=== PATIENT | male | born 1970 | race Two or more races ===

== ENCOUNTER 2017-09-21 09:29 | Emergency (ER) | payer OTHER ==
[~2017-09-21] VITALS: Ht 172.7 cm; Wt 78.0 kg
[~2017-09-21 09:29] MED LIST: DIOVAN160 M1 PO; LAMISIL250 MG PO
[2017-09-21] MEDS ORDERED: LIPITOR20 MG (10:04)
[2017-09-21] MEDS ORDERED: BYSTOLIC10 MG (10:04)
== END 2017-09-21 13:11 | disposition home or self-care (01) ==
LOC: ER 09:29
DX: A60.01 Herpesviral infection of penis (principal); K29.60 Other gastritis without bleeding; B34.9 Viral infection, unspecified

== ENCOUNTER 2019-09-01 19:31 | Inpatient (IN) | payer OTHER ==
[~2019-09-01] VITALS: Ht 172.7 cm; Wt 83.0 kg
[~2019-09-01 19:31] MED LIST changes: +BYSTOLIC10 MG; +LIPITOR20 MG
[2019-09-01] MEDS ORDERED: TOPROL XL50 M1 PO (19:53)
[2019-09-01] MEDS ORDERED: NORVASC5 MG PO (19:54)
[2019-09-01] MEDS ORDERED: CRESTOR10 MG PO (19:54)
[2019-09-03] MEDS ORDERED: AZITHROMYCIN250 MG PO (08:42)
[2019-09-03] MEDS ORDERED: OSEL75CA PO (08:42)
[2019-09-03] MEDS ORDERED: ALBUTEROL0.63 MG/3 IH (10:08)
== END 2019-09-03 15:21 | disposition home or self-care (01) | DRG 153 ==
LOC: ER 19:31 → SEC-K 22:06 → MEDJ 09-02 08:18
PROVIDERS: ADMIT Internal Medicine
PROC: 8E0ZXY6 Isolation (ICD-10-PCS; principal; 2019-09-01)
PROC: BB24ZZZ Computerized Tomography (CT Scan) of Bilateral Lungs (ICD-10-PCS; 2019-09-01)
PROC: 3E0F7GC Introduction of Other Therapeutic Substance into Respiratory Tract, Via Natural or Artificial Opening (ICD-10-PCS; 2019-09-01)
PROC: 4A033R1 Measurement of Arterial Saturation, Peripheral, Percutaneous Approach (ICD-10-PCS; 2019-09-01)
DX: J11.1 Influenza due to unidentified influenza virus with other respiratory manifestations (principal); R09.02 Hypoxemia; J22 Unspecified acute lower respiratory infection; R50.9 Fever, unspecified

== ENCOUNTER 2020-06-03 15:43 | Emergency (ER) | payer OTHER ==
[~2020-06-03] VITALS: Ht 172.7 cm; Wt 78.5 kg
[~2020-06-03 15:43] MED LIST changes: +ALBUTEROL0.63 MG/3 IH; +AZITHROMYCIN250 MG PO; +CRESTOR10 MG PO; +NORVASC5 MG PO; +OSEL75CA PO; +TOPROL XL50 M1 PO
[2020-06-03] MEDS ORDERED: BREO ELLIPTA I1 EACH IH (16:45)
[2020-06-03] MEDS ORDERED: BANOPHEN25 MG PO (16:46)
[2020-06-03] MEDS ORDERED: BRONKAID DUAL1 EACH PO (16:46)
[2020-06-03] MEDS ORDERED: PREDNISOLONE SO10 MG PO (16:48)
== END 2020-06-03 19:39 | disposition home or self-care (01) ==
LOC: ER 15:43
DX: J06.9 Acute upper respiratory infection, unspecified (principal); Z03.818 Encounter for observation for suspected exposure to other biological agents ruled out

== ENCOUNTER 2020-06-24 23:07 | Emergency (ER) | payer OTHER ==
[~2020-06-24] VITALS: Ht 172.7 cm; Wt 80.3 kg
[~2020-06-24 23:07] MED LIST changes: +BANOPHEN25 MG PO; +BREO ELLIPTA I1 EACH IH; +BRONKAID DUAL1 EACH PO; +PREDNISOLONE SO10 MG PO
[2020-06-24] MEDS ORDERED: ACIDO FOLICO (23:32)
[2020-06-25] MEDS ORDERED: ONDANSETRON HCL4 MG PO (07:08)
[2020-06-25] MEDS ORDERED: TAMS0.4C PO (07:08)
[2020-06-25] MEDS ORDERED: TRAMADOL HCL50 MG PO (07:08)
== END 2020-06-25 07:36 | disposition home or self-care (01) ==
LOC: ER 23:07
DX: N20.1 Calculus of ureter (principal); K76.89 Other specified diseases of liver; R10.11 Right upper quadrant pain; R11.2 Nausea with vomiting, unspecified

== ENCOUNTER 2020-06-28 18:54 | Emergency (ER) | payer OTHER ==
[~2020-06-28] VITALS: Ht 172.7 cm; Wt 80.3 kg
[~2020-06-28 18:54] MED LIST changes: +ACIDO FOLICO; +ONDANSETRON HCL4 MG PO; +TAMS0.4C PO; +TRAMADOL HCL50 MG PO
[2020-06-29] MEDS ORDERED: ULTRAM50 MG PO (02:47)
[2020-06-29] MEDS ORDERED: TAMS0.4C PO (02:47)
[2020-06-29] MEDS ORDERED: LEVOFLOXACIN250 MG PO (02:47)
== END 2020-06-29 03:00 | disposition home or self-care (01) ==
LOC: ER 18:54
DX: N20.0 Calculus of kidney (principal)

== ENCOUNTER 2020-07-10 09:25 | Outpatient (CLI) | payer OTHER ==
[~2020-07-10 09:25] MED LIST changes: +LEVOFLOXACIN250 MG PO; +ULTRAM50 MG PO
== END 2020-07-10 09:37 | disposition home or self-care (01) ==
LOC: TOM 09:25
PROVIDERS: ATTEND Urology
DX: N20.1 Calculus of ureter (principal)

== ENCOUNTER 2020-07-21 13:26 | Outpatient (CLI) | payer OTHER | END 2020-07-21 13:38 | disposition home or self-care (01) | LOC: RAD 13:26 | PROVIDERS: ATTEND Urology | DX: N20.1 Calculus of ureter (principal); N46.11 Organic oligospermia; I86.1 Scrotal varices ==

== ENCOUNTER 2020-08-04 09:53 | Outpatient (CLI) | payer OTHER | END 2020-08-04 10:05 | disposition HB | LOC: RAD 09:53 | PROVIDERS: ATTEND Urology | DX: N20.1 Calculus of ureter (principal); N46.11 Organic oligospermia; I86.1 Scrotal varices ==

== ENCOUNTER 2020-08-14 08:43 | Outpatient (CLI) | payer OTHER | END 2020-08-14 08:57 | disposition HB | LOC: RAD 08:43 | PROVIDERS: ATTEND Urology | DX: N20.1 Calculus of ureter (principal); N46.11 Organic oligospermia; I86.1 Scrotal varices ==

== ENCOUNTER → 2020-08-15 | Outpatient (CLI) | payer OTHER | END | disposition home or self-care (01) | LOC: TOM 10:05 | PROVIDERS: ATTEND Urology | DX: R10.2 Pelvic and perineal pain (principal); Q62.11 Congenital occlusion of ureteropelvic junction ==

== ENCOUNTER 2020-08-18 06:35 | Day surgery (SDC) | payer OTHER | END 2020-08-18 16:05 | disposition home or self-care (01) | LOC: CIR.AMB 06:35 | PROVIDERS: ATTEND Urology | DX: N20.1 Calculus of ureter (principal); Z20.822 Contact with and (suspected) exposure to COVID-19 ==

== ENCOUNTER 2021-05-10 10:59 | Outpatient (CLI) | payer OTHER | END 2021-05-10 11:03 | disposition home or self-care (01) | LOC: TOM 10:59 | PROVIDERS: ATTEND Urology | DX: Q44.6 Cystic disease of liver (principal); K42.9 Umbilical hernia without obstruction or gangrene; N20.1 Calculus of ureter ==

== ENCOUNTER 2021-07-22 20:34 | Emergency (ER) | payer OTHER ==
[~2021-07-22] VITALS: Ht 172.7 cm; Wt 78.5 kg
== END 2021-07-22 21:35 | disposition home or self-care (01) ==
LOC: ER 20:34
DX: R06.02 Shortness of breath (principal); I10 Essential (primary) hypertension

== ENCOUNTER 2022-02-28 19:27 | Emergency (ER) | payer OTHER ==
[~2022-02-28] VITALS: Ht 172.7 cm; Wt 80.7 kg
[2022-03-01] MEDS ORDERED: MEDROLPACK PO (00:17)
[2022-03-01] MEDS ORDERED: MUCINEX DM ER1 EAC1 PO (00:17)
[2022-03-01] MEDS ORDERED: BENZONATATE200 M1 PO (00:17)
[2022-03-01] MEDS ORDERED: IPRAT-ALBUT 0.5-3 ML IH (00:17)
== END 2022-03-01 01:14 ==
LOC: ER 19:27
DX: J45.901 Unspecified asthma with (acute) exacerbation (principal); I10 Essential (primary) hypertension; E86.0 Dehydration; Z20.822 Contact with and (suspected) exposure to COVID-19

== ENCOUNTER 2022-04-02 22:04 | Emergency (ER) | payer OTHER ==
[~2022-04-02] VITALS: Ht 172.7 cm; Wt 83.0 kg
[~2022-04-02 22:04] MED LIST changes: +BENZONATATE200 M1 PO; +IPRAT-ALBUT 0.5-3 ML IH; +MEDROLPACK PO; +MUCINEX DM ER1 EAC1 PO
== END 2022-04-03 00:24 | disposition home or self-care (01) ==
LOC: ER 22:04
DX: R05.3 Chronic cough (principal)

== ENCOUNTER 2022-07-14 06:07 | Emergency (ER) | payer OTHER ==
[~2022-07-14] VITALS: Ht 172.7 cm; Wt 81.6 kg
== END 2022-07-14 12:15 | disposition home or self-care (01) ==
LOC: ER 06:07
DX: T78.40XA Allergy, unspecified, initial encounter (principal); Z20.822 Contact with and (suspected) exposure to COVID-19

== ENCOUNTER 2024-03-16 07:24 | Outpatient (CLI) | payer OTHER ==
[2024-03-16 08:35] LABS: HEMOGLOBIN 14.8 g/dL (13-16.00); MEAN CELL VOLUME 86.2 fL (80.0-100.00); MEAN CORPUSCULAR HEMOGLOBIN 30.5 pg (27.00-32.0); MEAN CORPUSCULAR HGB CONC 35.4 g/dl (32.0-36.0); PLATELET COUNT 217 K/uL (150-450); RED BLOOD COUNT 4.87 M/uL (4.00-6.00); RED CELL DISTRIBUTION WIDTH 12.8 % (11.5-14.5)
[2024-03-16 09:09] LABS: PH,URINE 5.5 (5.0-8.0); URINE APPEARANCE Cloudy; URINE BILIRRUBIN Negative (NEGATIVE); URINE BLOOD Small; URINE COLOR Yellow; URINE GLUCOSE Negative (NEGATIVE); URINE KETONE Negative (NEGATIVE); URINE LEUKOCYTE Negative; URINE NITRATE Negative; URINE PROTEIN Negative (NEGATIVE); URINE UROBILINOGEN 0.2 E.U./dl
[2024-03-16 09:16] LABS: URINE BACTERIA 7.5 uL (0.0-1933); URINE RBC 11.6 uL (0.0-20.8)
[2024-03-16 09:17] LABS: URINE CAST 0.15 uL (0.0-1.40); URINE EPITHELIAL CELLS 0.3 uL (0.0-38.8); URINE WBC 1.5 uL (0.0-23.2)
[2024-03-16 09:26] LABS: ALBUMIN 4.1 gm/dL (3.4-5.0); BILIRUBIN TOTAL 0.51 mg/dL (0.3-1.2); CALCIUM 8.8 mg/dL (8.5-10.1); CHOL HDL RATIO 4.6 (0-5.0); CREATININE SERUM 0.89 mg/dL (0.70-1.30); GFR 90.12; GLOBULINA 3.3 G/DL (2.4-3.5); POTASSIUM 3.94 mEq/L (3.5-5.1); PROSTATIC SPECIFIC ANTIGEN 0.851 NG/ML (0.010-4.00); TOTAL PROTEIN 7.4 gm/dL (6.4-8.2); TSH 0.494 uIU/mL (0.358-3.74)
== END 2024-03-16 07:38 | disposition home or self-care (01) ==
LOC: LAB 07:24
PROVIDERS: ATTEND Urology
DX: I11.9 Hypertensive heart disease without heart failure (principal); E78.9 Disorder of lipoprotein metabolism, unspecified; E03.9 Hypothyroidism, unspecified; R73.9 Hyperglycemia, unspecified; D64.9 Anemia, unspecified; R97.20 Elevated prostate specific antigen [PSA]; R31.1 Benign essential microscopic hematuria

== ENCOUNTER 2024-03-16 08:06 | Outpatient (CLI) | payer OTHER | END 2024-03-16 08:24 | disposition home or self-care (01) | LOC: SONOGRAMA 08:06 | PROVIDERS: ATTEND Urology | DX: N20.0 Calculus of kidney (principal); N31.1 Reflex neuropathic bladder, not elsewhere classified ==

== ENCOUNTER 2024-12-27 06:46 | Day surgery (SDC) | payer OTHER ==
[2024-12-21 07:36] LABS: BASO % 0.6 % (0.1-1.2); EOS # 0.39 (0.04-0.54); EOS % 6.3 % (0.7-7.0); LYMPH # 1.69 (1.18-3.74); LYMPH % 27.4 % (19.3-53.1); MEAN PLATELET VOLUME 9.90 fl (9.4-12.4); MONO # 0.52 (0.24-0.82); MONO % 8.4 % (4.7-12.5); NEUT # 3.51 (1.56-6.13); NEUT % 57.1 % (34.0-71.1); RED CELL DISTRIBUTION WIDTH 12.0 % (11.6-14.4)
[2024-12-21 07:43] VITALS: BP 139/87
[2024-12-21 07:54] LABS: URINE APPEARANCE Clear; URINE BILIRRUBIN Negative (NEGATIVE); URINE BLOOD NHT; URINE COLOR Yellow; URINE GLUCOSE Negative (NEGATIVE); URINE KETONE Negative (NEGATIVE); URINE LEUKOCYTE Negative; URINE NITRATE Negative; URINE PROTEIN Negative (NEGATIVE); URINE UROBILINOGEN 0.2 E.U./dl
[2024-12-21 07:56] LABS: URINE BACTERIA 10.7 uL (0.0-1933); URINE RBC 31.9 uL (0.0-20.8)
[2024-12-21 08:03] LABS: URINE CAST 0.43 uL (0.0-1.40); URINE EPITHELIAL CELLS 0.6 uL (0.0-38.8); URINE WBC 1.2 uL (0.0-23.2)
[2024-12-21 08:27] LABS: INR < 0.93
[2024-12-21 08:41] LABS: ALT/SGPT 35.0 U/L (12-78); AST/SGOT 15.0 U/L (15-37); BILIRUBIN TOTAL 0.51 mg/dL (0.3-1.2); BUN CREA RATIO 25.0 (7.0-25.0); CREATININE SERUM 0.87 mg/dL (0.70-1.30); GFR 92.15; GLOBULINA 3.0 G/DL (2.4-3.5); GLUCOSE FASTING 95.0 mg/dL (65-100); OSMOLALITY SERUM 288.0 MOSM/KG (275-295)
[~2024-12-27] VITALS: Ht 172.7 cm; Wt 80.7 kg
[~2024-12-27 06:46] MED LIST changes: +CANDESARTAN CILE8 MG
[2024-12-27] MEDS ORDERED: CEFAZOLIN SODIUM 1,000 MG VIAL IV ONE (10:45)
[2024-12-27] MEDS ORDERED: MORPHINE SULFATE 4 MG/ML VIAL IV ONE ×2 (12:35→13:40)
== END 2024-12-27 14:45 | disposition home or self-care (01) ==
LOC: CIR.AMB 06:46
PROVIDERS: ATTEND Surgery
DX: K42.0 Umbilical hernia with obstruction, without gangrene (principal)
CPT/HCPCS: 49594; C1781